=== PATIENT | male | born 1980 | race Caucasian/White ===

== ENCOUNTER 2017-07-22 13:29 | Emergency (ER) | payer MEDICAID ==
[~2017-07-22] VITALS: Ht 157.5 cm; Wt 63.0 kg
[~2017-07-22 13:29] MED LIST: CYCL-319 PO; IBUP-1542 PO; METF500T4 PO; NAPR-260 PO; TRAM50TA2 PO
[2017-07-22 13:31] VITALS: Ht 157.5 cm; Wt 63.0 kg
[2017-07-22] MEDS ORDERED: IBUPROFEN 600 MG TAB PO ONE (14:00)
[2017-07-22] MEDS ORDERED: IBUP400T22 PO (14:27)
--- NOTE | 2017-07-22 15:14 | ERD ---
ER Documentation Chief Complaint Chief Complaint Complains of bilateral leg pain x 3 days HPI 37-year-old male, non insulin dependent diabetes mellitus ,presents the emergency room with bilateral upper and lower extremity pain 3 days. Patient denies any injury or fall. No aggravating or alleviating factors. No weakness. No obvious deformities. No chest or abdominal pain. No chest pressure or heart palpitations. No vomiting or diarrhea. Patient did not take any medications at home. Patient works as a construction scheduler. ROS All systems reviewed and are negative except as per history of present illness. Medications Home Meds Active Scripts Ibuprofen* (Motrin*) 400 Mg Tab, 400 MG PO Q6, #30 TAB Prov:LUIS ALBERTO TALBERT NP 07/22/17 Cyclobenzaprine Hcl* (Cyclobenzaprine Hcl*) 10 Mg Tablet, 10 MG PO BID, #10 TAB Prov:BIA UMANA PA-C 07/06/16 Naproxen* (Naprosyn*) 500 Mg Tablet, 500 MG PO BID Y for PAIN AND/OR INFLAMMATION, #30 TAB Prov:BIA UMANA PA-C 07/06/16 Tramadol HCl (Tramadol HCl) 50 Mg Tablet, 50 MG PO Q4 Y for PAIN, #20 TAB Prov:BIA UMANA PA-C 07/06/16 Tramadol HCl (Tramadol HCl) 50 Mg Tab, 50 MG PO BID, #20 TAB Prov:ERIN PEREYRA MD 07/19/15 Ibuprofen* (Motrin*) 600 Mg Tab, 600 MG PO Q6, #20 TAB Prov:ERIN PEREYRA MD 07/19/15 Metformin* (Glucophage*) 500 Mg Tab, 500 MG PO BID, #60 TAB Prov:ILIANA GALINDO PA-C 05/19/15 Allergies Allergies: Coded Allergies: No Known Allergy (Unverified , 07/19/15) PMhx/Soc Medical and Surgical Hx: pt denies Surgical Hx History of Surgery: No Anesthesia Reaction: No Hx Neurological Disorder: No Hx Respiratory Disorders: No Hx Cardiac Disorders: No Hx Psychiatric Problems: No Hx Miscellaneous Medical Probl: Yes (diabeltes mellitus) Hx Alcohol Use: No Hx Substance Use: No Hx Tobacco Use: No Smoking Status: Never smoker Physical Exam Vitals Vital Signs Date Time Temp Pulse Resp B/P Pulse Ox O2 Delivery O2 Flow Rate FiO2 07/22/17 13:31 99.0 100 20 135/85 99 Physical Exam Const: No acute distress, alert Head: Atraumatic Eyes: Normal Conjunctiva ENT: Normal External Ears, Nose and Mouth. Neck: Full range of motion..~ No meningismus. Resp: Clear to auscultation bilaterally. No wheezing, rhonchi or crackles. No stridor or labored breathing. Cardio: Regular rate and rhythm, no murmurs Abd: Soft, non tender, non distended. Normal bowel sounds Skin: No petechiae or rashes Back: No midline or flank tenderness Ext: No cyanosis, or edema. Sensation fully intact. Capillary refill less than 3 seconds. Strength is equal bilaterally to upper and lower extremities. Neur: Awake and alert. Cranial nerves intact 2-12. Psych: Normal Mood and Affect Results 24 hrs Current Medications Medications (Trade) Dose Ordered Sig/Harsha Route PRN Reason Start Time Stop Time Status Last Admin Dose Admin Ibuprofen (Motrin) 600 mg ONCE ONCE PO 07/22/17 14:00 07/22/17 14:01 DC 07/22/17 14:17 Procedures/MDM MDM: This is a 37-year-old male presenting to the emergency department for generalized pain to upper and lower extremities 3 days. Physical exam is unremarkable. Patient is ambulating well. Patient given ibuprofen 600 mg p.o. Vital signs are stable. Patient is neurovascularly intact. Consulted Dr. Alejandre regarding this patient and we agree that patient is appropriate for outpatient management. Low suspicion for rhabdomyolysis. Patient is appropriate for outpatient management given prescription for ibuprofen. Instructed patient to follow-up with primary care provider in the next 2-3 days for reassessment and additional management. Return to ED for any high fever, chest pain, difficulty breathing, shortness breath, wheezing, vomiting, diarrhea, abdominal pain or any new or worsening symptoms. Patient verbalizes understanding. All questions answered at discharge. Scottish translation used during this encounter. Disclaimer: Inadvertent spelling and grammatical errors are likely due to EHR/ dictation software use and do not reflect on the overall quality of patient care. Also, please note that the electronic time recorded on this note does not necessarily reflect the actual time of the patient encounter. Departure Diagnosis: Primary Impression: Pain Condition: Stable Patient Instructions: Pain Management [facility] Usted se luther hecho un examen mdico de control que le indica que no est en tuyet condicin que requiera tratamiento urgente en el Departamento de Emergencia. Un estudio ms profundo y el tratamiento de monreal condicin pueden esperar sin ningn riesgo hasta que usted sea atendida/o en el consultorio de monreal mdico o tuyet cl portillo. Es responsabilidad suya arreglar tuyet calin para el seguimiento del sujit. MANEJO DE CONDICIONES NO URGENTES EN EL FUTURO 1) Si usted tiene un mdico de atencin primaria: Usted debera llamar a monreal mdico de atencin primaria antes de venir al departamento de emergencia. Despus de las horas de consultorio, monreal doctor o monreal asociado/a est disponible por telfono. El mdico o enfermero de brandon en el servicio telefnico puede asesorarle por major medio para atender el problema, o sujit contrario se puede programar tuyet calin. 2) Si usted no tiene un mdico de atencin primaria: Llame al mdico o clnica de referencia que aparece abajo maggi las horas de consultorio para hacer tuyet calin para que le vean. CLINICAS: [facility] [phone] [facility] [phone] [facility] [phone] [address] [facility]. [facility] [phone] [place] [phone] [facility]. [phone] [facility] () Usted se luther hecho un examen mdico de control que le indica que no est en tuyet condicin que requiera tratamiento urgente en el Departamento de Emergencia. Un estudio ms profundo y el tratamiento de monreal condicin pueden esperar sin ningn riesgo hasta que usted sea atendida/o en el consultorio de monreal mdico o tuyet cl portillo. Es responsabilidad suya arreglar tuyet calin para el seguimiento del sujit. MANEJO DE CONDICIONES NO URGENTES EN EL FUTURO 1) Si usted tiene un mdico de atencin primaria: Usted debera llamar a monreal mdico de atencin primaria antes de venir al departamento de emergencia. Despus de las horas de consultorio, monreal doctor o monreal asociado/a est disponible por telfono. El mdico o enfermero de brandon en el servicio telefnico puede asesorarle por major medio para atender el problema, o sujit contrario se puede programar tuyet calin. 2) Si usted no tiene un mdico de atencin primaria: Llame al mdico o condado institucions de referencia que aparece abajo mgagi las horas de consultorio para hacer tuyet calin para que le vean. SI USTED NO PUEDE PAGAR PARA JOANN UN MEDICO puede ir a: [facility] [id number] [place] [address] [facility] [address] [place] [address] [facility] [address] [place] [address] [facility]A [facility] [address] [place], [place] [id number] Additional Instructions: Llame al doctor MAANA y mikey tuyet CALIN PARA DENTRO DE 2-3 BOYD.Dgale a la secretaria que nosotros le instruimos hacer esta calin.Avise o llame si monreal condicin se empeora antes de la calin. Regresa aqui si peor o no mejor. Vuelva a Ed para cualquier fiebre cintia, dolor en el pecho, dificultad para respirar, respiracin entrecortada, sibilancias, vmitos, diarrea, dolor abdominal o cualquier sntoma nuevo o empeoramiento. LUIS ALBERTO TALBERT NP Jul 22, 2017 15:13
== END 2017-07-22 14:33 | disposition home or self-care (01) ==
LOC: FTE 13:29
DX: M79.662 Pain in left lower leg (principal); M79.661 Pain in right lower leg; M79.622 Pain in left upper arm; M79.621 Pain in right upper arm; E11.9 Type 2 diabetes mellitus without complications; Z79.84 Long term (current) use of oral hypoglycemic drugs
CPT/HCPCS: Z7502; Z7610; 99283

== ENCOUNTER 2017-12-13 16:15 | Emergency (ER) | END 2017-12-13 19:57 | disposition home or self-care (01) ==

== ENCOUNTER 2018-08-22 08:50 | Emergency (ER) | END 2018-08-22 10:22 | disposition home or self-care (01) ==